=== PATIENT | female | born 1995 | race Caucasian/White ===

== ENCOUNTER → 2023-11-29 14:28 | Outpatient (BNVA) | payer BC, SELFPAY | PROVIDERS: Family Provider Nurse Practitioner Family; PCP Family Medicine; Visit Provider Family Medicine | DX: F41.9 Anxiety disorder, unspecified (principal); K58.9 Irritable bowel syndrome, unspecified; R14.0 Abdominal distension (gaseous); N92.6 Irregular menstruation, unspecified; L70.9 Acne, unspecified; E03.9 Hypothyroidism, unspecified | CPT/HCPCS: 80053; 82672; 84144; 84403; 84443; 85025 ==

== ENCOUNTER → 2024-04-30 13:49 | Outpatient (BNVA) | payer BC, SELFPAY | PROVIDERS: Family Provider Nurse Practitioner Family; PCP Family Medicine; Visit Provider Family Medicine | DX: R79.89 Other specified abnormal findings of blood chemistry (principal); K58.9 Irritable bowel syndrome, unspecified; R14.0 Abdominal distension (gaseous); N28.9 Disorder of kidney and ureter, unspecified; F41.9 Anxiety disorder, unspecified | CPT/HCPCS: 80053; 80061 ==

== ENCOUNTER 2024-05-18 08:37 | Outpatient (CLI) | payer BC, SELFPAY ==
--- NOTE | 2024-05-18 09:00 | US_ITS ---
WS: [id number] Complete ABDOMINAL ULTRASOUND HISTORY: elevated LFT's and BUN/creatinine COMPARISON: None available. Liver: 16.4 cm in length. Normal size liver and echogenicity. No bile duct dilatation or mass. Portal Vein: Normal hepatopetal flow with monophasic waveform. Gallbladder: Normally distended gallbladder with no stones or wall thickening. CBD: 0.4 cm Pancreas: Normal size and echogenicity. Right kidney: 11.0 cm x 5.1 x 4.7 cm. Cortex:1.0 cm. Normal size and echogenicity. No hydronephrosis or mass. Left kidney: 12.5 cm x 5.5 cm x 5.8 cm. Cortex: 1.5 cm. Normal size and echogenicity. No hydronephrosis or mass. Spleen: 10.8 cm. Normal size and echogenicity. Aorta and IVC: Unremarkable abdominal aorta and IVC. US/US abdomen complete* [id number] Impression: Normal complete abdomen ultrasound.
== END 2024-05-18 08:38 | disposition home or self-care (01) ==
PROVIDERS: Family Provider Nurse Practitioner Family; PCP Family Medicine; Visit Provider Family Medicine
DX: R79.89 Other specified abnormal findings of blood chemistry (principal); N28.9 Disorder of kidney and ureter, unspecified
CPT/HCPCS: 76700